=== PATIENT | male | born 1960 | race Caucasian/White ===

== ENCOUNTER 2016-11-06 07:55 | Inpatient (IN) | payer BC, OTHER ==
[~2016-11-06] VITALS: Ht 180.3 cm; Wt 78.0 kg
[2016-11-06] MEDS ORDERED: LISI10TA4 PO (08:04)
[2016-11-06] MEDS: NS 1,000 ML IV SCH ×2 (10:19→16:54)
[2016-11-06] MEDS ORDERED: ONDANSETRON 4MG/2ML VIAL (J2405) IV PRN (10:30)
[2016-11-06] MEDS ORDERED: NORCO, ANEXSIA 5/325MG TABLET (HYDROcodone/ACETAMINOPHEN) PO PRN ×2 (10:30)
--- NOTE | 2016-11-06 11:16 | REP ---
Chest one-view HISTORY: Shortness of breath Comparison: 11/05/2016 The lungs are clear. The heart is normal in size. The pulmonary vasculature is normal in appearance. Impression: No acute disease. Signed by Jared Ryan MD 11/06/2016 11:07 A
[2016-11-06 11:24] LABS: INR 0.99
[2016-11-06 12:00] LABS: MEAN CORPUSCULAR VOLUME 95.5 fl (80.0-96.0); WHITE BLOOD COUNT 6.9 K/mm3 (4.0-10.0)
[2016-11-06 12:01] LABS: ADD MANUAL DIFFER NO; BASO # 0.1 K/mm3 (0.0-0.2); BASO % 0.9 % (0.0-1.0); DIFF SLIDE NUMBER 222; EOS % 0.3 % (0.0-3.0); LARGE UNSTAINED CELL # 0.1 K/mm3 (0.0-0.4); LYMPH # 1.1 K/mm3 (1.5-4.5); LYMPH % 16.2 % (24.0-44.0); MEAN CORPUSCULAR HEMOGLOBIN 31.6 pg (27.0-33.0); MEAN CORPUSCULAR HGB CONC 33.1 g/dl (32.0-36.5); MONO # 0.2 K/mm3 (0.0-0.8); MONO % 3.2 % (0.0-5.0); NEUTROPHILS # 5.4 K/mm3 (1.8-7.7); NEUTROPHILS % 78.4 % (36.0-66.0); PLATELET COUNT, AUTOMATED 209 k/mm3 (150-450); RED CELL DISTRIBUTION WIDTH 13.2 % (11.5-14.5)
[2016-11-06 13:20] LABS: ALBUMIN 3.7 GM/DL (3.2-5.2); ALBUMIN/GLOBULIN RATIO 1.19 (1.00-1.93); ALKALINE PHOSPHATASE 74 U/L (45-117); ALT/SGPT 18 U/L (12-78); ANION GAP 7 MEQ/L (8-16); AST/SGOT 12 U/L (15-37); BILIRUBIN,TOTAL 0.9 MG/DL (0.2-1.0); BLOOD UREA NITROGEN 9 MG/DL (7-18); CALCIUM LEVEL 8.8 MG/DL (8.5-10.1); CARBON DIOXIDE LEVEL 28 MEQ/L (21-32); CHLORIDE LEVEL 111 MEQ/L (98-107); CREATININE FOR GFR 0.71 MG/DL (0.70-1.30); GLOMERULAR FILTRATION RATE > 60.0 (>56); GLUCOSE, FASTING 91 MG/DL (70-105); MAGNESIUM LEVEL 1.9 MG/DL (1.8-2.4); POTASSIUM SERUM 4.3 MEQ/L (3.5-5.1); SODIUM LEVEL 146 MEQ/L (136-145); T UPTAKE 38 % (33-40); TOTAL PROTEIN 6.8 GM/DL (6.4-8.2)
[2016-11-06 13:25] VITALS: BP 179/89
--- NOTE | 2016-11-06 13:44 | REP ---
MR BRAIN WITHOUT CONTRAST: HISTORY: Ataxia. Several punctate areas of increased signal intensity on T2-weighted images are present in the periventricular and subcortical white matter. This represents small vessel ischemic disease. There is no intraparenchymal hemorrhage, infarct, mass or midline shift. The sella turcica is partially empty. The ventricular system is normal in appearance. There is no extracerebral collection. The sinuses are clear. A 5 mm Thornwaldt cyst is present in the nasopharynx. IMPRESSION: Minimal small vessel ischemic disease. Signed by Jared Ryan MD 11/06/2016 01:50 P
--- NOTE | 2016-11-06 13:49 | REP ---
MR CERVICAL SPINE WITHOUT CONTRAST: HISTORY: Upper extremity numbness. A disc bulge is present at the C4-5 level. There is mild effacement of the thecal sac without spinal cord compression. Uncinate process hypertrophy is present on the left. This produces minimal narrowing of the left C4 neural foramen. The right C4 neural foramen is patent. A disc bulge with associated osteophyte formation is present at the C5-6 level. There is moderate effacement of the thecal sac without spinal cord compression. Bilateral uncinate process hypertrophy is present. This produces mild and minimal narrowing of the right and left C5 neural foramina respectively. A disc bulge is present at the C6-7 level. There is moderate effacement at the thecal sac without spinal cord compression. Bilateral uncinate process hypertrophy is present. This produces moderate narrowing of the C6 neural foramina. There is no other disc bulge or herniation. The remaining neural foramina are patent. The spinal cord is normal in signal intensity. The C5-6 and C6-7 intervertebral discs are decreased in height consistent with disc degeneration. Normal signal intensity is present in the cervical vertebral bodies. IMPRESSION: There is cervical spondylosis at the C4-5 through C6-7 levels without spinal cord compression. Signed by Jared Ryan MD 11/06/2016 01:51 P
[2016-11-06 16:15] VITALS: BP 164/79
[2016-11-06] MEDS: NICOTINE 21MG/24HR 1 EA TRANSDERMAL TD SCH (16:54)
[2016-11-06 17:12] LABS: GLUCOSE CSF 60 MG/DL (40-75)
[2016-11-06 18:31] LABS: APPEARANCE, CSF CLEAR (CLEAR); COLOR, CSF COLORLESS (COLORLESS); CSF TUBE# CELL CNT TUBE 4
[2016-11-06 18:33] LABS: CSF DIFF IF INDICATED? NO (NO); CSF DILUENT LOT # 6333; RBC CSF AUTO 5 /mm3 (0-0); WBC CSF AUTO 1 /mm3 (0-10)
[2016-11-06 18:34] LABS: APPEARANCE, CSF CLEAR (CLEAR); COLOR, CSF COLORLESS (COLORLESS); CSF TUBE# CELL CNT TUBE 1
[2016-11-06 18:35] LABS: CSF DIFF IF INDICATED? NO (NO); CSF DILUENT LOT # 6333; RBC CSF AUTO 127 /mm3 (0-0); WBC CSF AUTO 2 /mm3 (0-10)
[2016-11-06 18:46] LABS: VITAMIN B12 LEVEL 424 PG/ML (247-911)
[2016-11-06 20:00] VITALS: BP 166/86
--- NOTE | 2016-11-06 21:26 | ECGEPIP ---
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
[2016-11-07] VITALS: BP 175/81
[2016-11-07] MEDS: NS 1,000 ML IV SCH (02:52)
[2016-11-07 04:00] VITALS: BP 174/92
[2016-11-07 04:56] LABS: MEAN CORPUSCULAR HEMOGLOBIN 31.2 pg (27.0-33.0); MEAN CORPUSCULAR HGB CONC 32.7 g/dl (32.0-36.5); MEAN CORPUSCULAR VOLUME 95.6 fl (80.0-96.0); RED CELL DISTRIBUTION WIDTH 13.1 % (11.5-14.5)
[2016-11-07 05:29] LABS: ANION GAP 5 MEQ/L (8-16); BLOOD UREA NITROGEN 11 MG/DL (7-18); CALCIUM LEVEL 8.6 MG/DL (8.5-10.1); CARBON DIOXIDE LEVEL 29 MEQ/L (21-32); CHLORIDE LEVEL 113 MEQ/L (98-107); GLOMERULAR FILTRATION RATE > 60.0 (>56); GLUCOSE, FASTING 90 MG/DL (70-105); MAGNESIUM LEVEL 1.9 MG/DL (1.8-2.4); POTASSIUM SERUM 4.4 MEQ/L (3.5-5.1); SODIUM LEVEL 147 MEQ/L (136-145)
[2016-11-07 08:00] VITALS: BP 156/83
[2016-11-07] MEDS: NICOTINE 21MG/24HR 1 EA TRANSDERMAL TD SCH (08:29)
[2016-11-07 08:30] VITALS: BP 153/83
[2016-11-07] MEDS ORDERED: LISINOPRIL 10 MG TAB PO SCH (09:00)
--- NOTE | 2016-11-07 11:12 | CR ---
DATE OF CONSULTATION: 11/06/2016 REFERRING PHYSICIAN: Dr. John Daniels REASON FOR CONSULTATION: Numbness and tingling of arms and legs. HISTORY OF PRESENT ILLNESS: Andrew Frederick is a 55-year-old man who was at his baseline state of health until yesterday night when around 09:30 p.m. he went to bed and woke up around 10:30 p.m. and had numbness of both hands with pain in his hands and tingling of his feet. His feet felt cold. His feet symptoms lasted for a couple of minutes, but his hands continued to feel numb and tingly. He went to [facility] and then left against medical advice at around 03:00 a.m. He was being sent to [facility], but went home. He went to sleep. He woke up around 7:00 a.m. and again had similar symptoms so he came to [facility] emergency room. The patient states that a year ago he had similar symptoms that lasted for a few minutes. He has a history of chronic back pain. He denies any headaches or neck pain. He denies seizures, dysphagia, dysarthria, diplopia, or urinary incontinence. He denies any falls or loss of consciousness. DIAGNOSTIC STUDIES: His MRI scan of brain showed minimal small vessel ischemic disease of brain. MRI of cervical spine showed mild cervical spondylosis. His CBC and metabolic profile were within normal limits. His spinal fluid total protein was 32.7 with a glucose of 60 and the rest of the studies are pending. PAST MEDICAL HISTORY: 1. Hypertension. 2. Chronic back pain. ALLERGIES: - CODEINE CURRENT MEDICATIONS: - lisinopril 10 mg by mouth daily SOCIAL HISTORY: He smokes one pack per day. He denies alcohol or illicit drugs. FAMILY HISTORY: Parents had coronary artery disease, hypertension and diabetes. PHYSICAL EXAMINATION: Temperature 99.3, respiratory rate 16, blood pressure 168/84, pulse 57. Heart: Regular rate and rhythm. Lungs: Clear to auscultation. Abdomen: Soft, nontender, nondistended. No gross musculoskeletal abnormalities. Ear, nose and throat examination is within normal limits. The patient is awake, alert, and oriented to place, person and time. Normal speech, comprehension and repetition. Extraocular muscles are intact. No facial weakness. Tongue and uvula are midline. 5/5 strength in all four extremities except in bilateral abductor pollicis brevis (APB) and abductor digiti minimi (ADM) muscles were 4/5 with mild atrophy. He has decreased cold and pinprick vibration sensation in his fingers. Deep tendon reflexes are 2+ throughout. Gait is normal. There is no ataxia or dysmetria. There is no tremor or rigidity. ASSESSMENT: 1. Suspected bilateral carpal tunnel syndrome. 2. Suspected bilateral ulnar nerve compression across elbows. 3. Possible early peripheral neuropathy. PLAN: 1. Check vitamin B12, vitamin B1, TSH, serum copper, etc. 2. EMG nerve conduction study of arms and legs as outpatient with our office. 3. Follow with our office in 2- 3 weeks after hospital discharge. NICOLLE
--- NOTE | 2016-11-07 11:55 | HPE ---
DATE OF ADMISSION: 11/06/2016 This is a patient without a primary care provider. 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 John Siddiqi. Chief complaint is numbness. The following is a summary of his presentation: This is a 55-year-old gentleman who was feeling well last evening. He went to bed and then awoke with numbness and tingling in both arms and legs, worse in his hands and his upper extremity. He went to the emergency department at [facility], a workup was begun, and he left against medical advice (AMA). He went home, was feeling a little better, woke up this morning and was worse, could not move his legs, was using his hands to move his legs, was having difficulty walking. The issue with strength in his legs resolved. He did describe some difficulty with breathing, he found it difficult to take deep breaths and did have some low back pain. Past medical history is notable for hypertension. Surgical history is notable for a vasectomy, colonoscopy. His medications at home include: - aspirin 81 mg daily which he started on his own 1 month ago Family history is notable for a mother who at age 54 of a heart attack, father who at age 82 with history of hypertension. Socially, he smokes a pack per day, he occasionally drinks alcohol. He lives between [place] and [place]. He works at [employer], this is a new job for him and it involves carrying heavy items. Review of systems is notable for unintentional weight loss of 30 pounds over the course of this year. He does describe night sweats. No headaches. No visual changes. No runny nose. No sore throat. No chest pain. He has had shortness of breath within the last day as described. No abdominal pain. No change in his bowel or bladder habits. No history of seizures. ALLERGIES: He has no listed drug allergies. On physical examination, temperature 97.8, pulse 57, respiratory rate 14, blood pressure 160/84, 97% on room air. He is awake, seems somewhat anxious. Mucous membranes are moist. Neck is supple. No cervical or supraclavicular lymphadenopathy. Breathing is symmetrical and easy. I:E ratio is 1:3. Heart is in a regular rate and rhythm. There is no EKG for me to review. Radial pulses are 2+. Capillary refill is less than 2 seconds. Abdomen is soft, doughy, nontender. He is able to move his upper and lower extremities with strength as expected. Lower extremity reflexes are 3+. There is no clonus. Babinski's are equivocal. I am unable to elicit upper extremity reflexes. Cranial nerves II-XII are grossly intact. There are labs from [facility] for me to review. Repeat are ordered. Chloride 104, bicarbonate 27, creatinine 0.8, white blood cell count 9.5, hemoglobin 14.4. CT of the head is unremarkable. We have done an MRI of the brain and cervical (C) spine which are remarkably unremarkable. My assessment is as follows: This is a 55-year-old with acute onset of paresthesias in his hands and lower extremities and his legs. The plan will be as follows: 1. Neurologic. I discussed the case in general with Dr. Paredes. We did order a lumbar puncture of the back to look for elevated protein. Await Dr. Paredes's full consult. 2. The patient has ongoing tobacco use. We did discuss tobacco cessation at length. I provided him with a nicotine patch. 3. The patient's blood pressure is somewhat elevated. We will monitor blood pressure. May benefit from an antihypertensive. 4. Deep venous thrombosis (DVT) prophylaxis will be mechanical. MTDD
[2016-11-07 12:00] VITALS: BP 146/80
[2016-11-07] MEDS ORDERED: NICO21PAT TD (12:21)
--- NOTE | 2016-11-07 12:34 | DS.PDOC ---
Discharge Summary General Date of Admission Nov 06, 2016 at 10:19 Date of Discharge 11/07/16 Specialist/Consultants Involve: CHIP SIMS MD Discharge Summary PROCEDURES PERFORMED: Lumbar puncture DISCHARGE DIAGNOSES: 1. Bilateral carpal tunnel syndrome. 2. Bilateral ulnar nerve compression across elbows. 3. Hypertension. 4. Nicotine abuse COMPLICATIONS/CHIEF COMPLAINT: Transient Ischemic Attack. 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 Symptoms in lower extremities resolved. Admitted for concerns of TIA. Neurology consulted for further assistance. Symptoms deemed to be secondary to bilateral carpal tunnel and ulnar nerve palsy. Outpatient follow up recommended for nerve conduction studies. DISCHARGE MEDICATIONS: Please see below. ALLERGIES: Please see below. PHYSICAL EXAMINATION ON DISCHARGE: VITAL SIGNS: Please see below. GENERAL: NAD HEENT: NC/AT, EOMI, PERRL NECK: supple CARDIOVASCULAR EXAMINATION: +S1S2, RRR RESPIRATORY EXAMINATION: CTA B/L ABDOMINAL EXAMINATION: soft, NT, +BS EXTREMITIES: no edema SKIN: no rashes NEUROLOGICAL EXAMINATION: decreased sensation bilateral fingers, strength 5/5 bilateral upper/lower extremities PSYCHIATRIC EXAMINATION: AAOx3 LABORATORY DATA: Please see below. ACTIVITY: As tolerated. DIET: 2 gram sodium DISCHARGE PLAN: Discharge home DISCHARGE INSTRUCTIONS: 1. Follow up with PCP as scheduled. 2. Follow up with neurology as scheduled. 3. Stop smoking. 4. 2 gram sodium diet. DISCHARGE CONDITION: Stable. TIME SPENT ON DISCHARGE: Greater than 30 minutes. Vital Signs/I&Os Vital Signs Date Time Temp Pulse Resp B/P (MAP) Pulse Ox O2 Delivery O2 Flow Rate FiO2 11/07/16 08:30 153/83 11/07/16 08:00 98.6 57 18 98 Room Air I&O- Last 24 Hours up to 6 AM 11/07/16 05:59 Intake Total 1665 ml Balance 1665 ml Laboratory Data Labs 24H Laboratory Tests 2 11/06/16 16:55: CSF Appearance CLEAR, CSF Color COLORLESS, CSF WBC (Auto) 1, CSF RBC (Auto) 5H, CSF Glucose (Tube 1) TUBE 2, CSF Total Protein (Tube 1) TUBE 2, CSF Cell Count Tube # TUBE 4, CSF Neutrophils % 0.0, CSF Lymphocytes % 60.0H, CSF Monocytes % 40.0H, CSF Eosinophils % 0.0, CSF Glucose 60, CSF Total Protein 32.7 11/06/16 18:08: Total Creatine Kinase 366#H, Creatine Kinase MB 1.9, Creatine Kinase MB Relative Index 0.51, Troponin I < 0.02, Vitamin B12 Level 424, Thyroid Stimulating Hormone (TSH) 0.277L 11/07/16 04:49: Total Creatine Kinase 61#, Creatine Kinase MB 1.0, Creatine Kinase MB Relative Index 1.63, Troponin I < 0.02, Anion Gap 5L, Glomerular Filtration Rate > 60.0, Blood Urea Nitrogen 11, Creatinine 0.70, Sodium Level 147H, Potassium Level 4.4 , Chloride Level 113H, Carbon Dioxide Level 29, Calcium Level 8.6, Magnesium Level 1.9 CBC/BMP Laboratory Tests 11/07/16 04:49 Red Blood Count 4.57, Mean Corpuscular Volume 95.6, Mean Corpuscular Hemoglobin 31.2, Mean Corpuscular Hemoglobin Concent 32.7, Red Cell Distribution Width 13.1 , Calcium Level 8.6, Total Creatine Kinase 61 # Discharge Medications Scheduled Lisinopril (Lisinopril) 10 Mg Tab, 10 MG PO DAILY, (Reported) NEW RX FROM [facility], HAS NOT STARTED YET Nicotine (Nicotine Transdermal Syst) 21 Mg/24 Hr Dis, 1 PATCH TD DAILY Allergies Coded Allergies: Codeine (Verified Allergy, Intermediate, RASH, 11/06/16) BETZY VANEGAS MD Nov 07, 2016 12:34
--- NOTE | 2016-11-07 16:39 | ECGEPIP ---
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
--- NOTE | 2016-11-07 16:50 | REP ---
Procedure: For guidance for lumbar puncture. History: TIA The procedure was performed under the direct supervision of Dr. Lee. The risks and benefits of the procedure were explained to the patient and informed consent was obtained. The L3-4 interspace was localized using fluoroscopic guidance. The skin was prepped and draped in a sterile fashion. 1% lidocaine was used as a local anesthetic. Using fluoroscopic guidance a 22-gauge spinal needle was inserted and advanced into the thecal sac. 12 ml of spinal fluid was withdrawn and sent to lab. The the patient tolerated the procedure well and there were no immediate complications. 6 seconds of fluoro time was utilized for this procedure. Reviewed by CRISTEL Bowden 11/07/2016 04:09 PSigned by Ramez Lee MD 11/07/2016 04:41 P
[2016-11-08] MEDS ORDERED: INFLUENZA QUADRIVALENT PF VACCINE 0.5ML SYRINGE (90686) IM ONE (09:00)
== END 2016-11-07 16:14 | disposition home or self-care (01) | DRG 48 ==
LOC: M ED 07:55 → M ED INP 10:19 → M PCU 13:25
PROVIDERS: ADMIT Internal Medicine; ATTEND Internal Medicine
PROC: 009U3ZX Drainage of Spinal Canal, Percutaneous Approach, Diagnostic (ICD-10-PCS; principal; 2016-11-06)
DX: G56.03 Carpal tunnel syndrome, bilateral upper limbs (principal); I10 Essential (primary) hypertension; G56.23 Lesion of ulnar nerve, bilateral upper limbs; M54.9 Dorsalgia, unspecified; F17.210 Nicotine dependence, cigarettes, uncomplicated; Z98.52 Vasectomy status; Z88.5 Allergy status to narcotic agent; Z79.82 Long term (current) use of aspirin; G62.9 Polyneuropathy, unspecified

== ENCOUNTER → 2024-09-27 | Outpatient (REF) ==
[~2024-09-27] MED LIST: CIPR-249 PO; LISI10TA22 PO; METR-265 PO; NICO21PAT TD
== END ==
LOC: M PLAIMG 13:03
PROVIDERS: ATTEND Internal Medicine
DX: R52 Pain, unspecified (principal)

== ENCOUNTER → 2025-01-13 | Outpatient (CLI) | payer MEDICARE, MEDICAID | LOC: M PLAIMG 10:55 | PROVIDERS: ATTEND Pain Medicine Interventional Pain Medicine | DX: M47.26 Other spondylosis with radiculopathy, lumbar region (principal); M48.061 Spinal stenosis, lumbar region without neurogenic claudication; I71.40 Abdominal aortic aneurysm, without rupture, unspecified ==